=== PATIENT | male | born 1945 | race Hispanic/Latino ===

== ENCOUNTER 2020-06-20 21:35 | Inpatient (IN) | payer MEDICARE ==
[~2020-06-20] VITALS: Ht 167.6 cm; Wt 79.4 kg
[2020-06-20 21:53] LABS: BASOPHILS % (AUTO) 0.7 % (0.0-5.0); EOSINOPHILS % (AUTO) 3.4 % (0.0-8.0); HEMATOCRIT 32.1 % (42-54); LYMPHOCYTES % (AUTO) 30.4 % (21.0-51.0); MEAN CORPUSCULAR HEMOGLOBIN 29.9 pg (27.0-33.0); MEAN CORPUSCULAR HGB CONC 32.4 g/dL (32.0-36.0); MEAN CORPUSCULAR VOLUME 92.2 fL (79-99); MONOCYTES % (AUTO) 7.7 % (3.0-13.0); NEUTROPHILS % (AUTO) 57.3 % (40.0-77.0); PLATELET COUNT (AUTO) 281 K/uL (130-400); RED BLOOD CELL COUNT(AUTO) 3.48 MIL/uL (4.50-6.20); RED CELL DISTRIBUTION WIDTH 12.8 % (11.0-15.5); WHITE BLOOD COUNT (AUTO) 10.3 K/uL (4.8-10.8)
[2020-06-20 22:05] LABS: INR 0.99 (0.85-1.15); PROTHROMBIN TIME 10.8 SEC (9.6-11.6)
[2020-06-20 22:06] LABS: PARTIAL THROMBOPLASTIN TIME 21.9 SEC (26.3-35.5)
[2020-06-20 22:08] LABS: CARBON DIOXIDE 27 mmol/L (21-32); CHLORIDE 108 mmol/L (101-111); CREATININE 1.1 mg/dL (0.5-1.5); GLOMERULAR FILTR. RATE CALC 70 mL/min (>60); GLUCOSE,RANDOM 135 mg/dL (70-105); POTASSIUM 3.6 mmol/L (3.5-5.1); SODIUM SERUM 142 mmol/L (136-145); UREA NITROGEN, BLOOD 41 mg/dL (7-18)
[2020-06-20] MEDS ORDERED: PANTOPRAZOLE 40 MG/VIAL ONE (22:33)
[2020-06-20] MEDS ORDERED: ONDANSETRON 4MG INJ ONE (22:33)
[2020-06-20 22:45] LABS: ALANINE AMINOTRANSFERASE 19 U/L (12-78); ALBUMIN 2.8 g/dL (3.5-5.0); ASPARTATE AMINOTRANSFERASE 16 U/L (10-37); BILIRUBIN,DIRECT < 0.1 mg/dL (0.0-0.3); BILIRUBIN,TOTAL 0.2 mg/dL (0.2-1.0)
[2020-06-20] MEDS ORDERED: LACTATED RINGERS 1000ML 1,000 ML IV ONE (22:57)
[2020-06-20] MEDS ORDERED: LACTULOSE 20 GM/30 ML UDCUP PO PRN (23:30)
[2020-06-20] MEDS ORDERED: NITROGLYCERIN 0.4 MG SL TAB SL PRN (23:30)
[2020-06-20] MEDS ORDERED: DIPHENHYDRAMINE HCL 25 MG CAPSULE PO PRN (23:30)
[2020-06-20] MEDS ORDERED: DiphenhydrAMINE HCL 50 MG/ML VIAL IV PRN (23:30)
[2020-06-20] MEDS ORDERED: ACETAMINOPHEN 325 MG TAB PO PRN (23:30)
[2020-06-20] MEDS ORDERED: MAG/ALUM/SIMETH 30 ML UDCUP PO PRN (23:30)
[2020-06-20] MEDS ORDERED: GUAIFENESIN-DM 200/20 MG 10 ML PO PRN (23:30)
[2020-06-20] MEDS ORDERED: ONDANSETRON 4MG INJ IV PRN (23:30)
[2020-06-21] VITALS (24 sets, daily range): BP systolic 126–180; BP diastolic 70–113
[2020-06-21 00:35] LABS: CREATININE 1.1 mg/dL (0.5-1.5); POTASSIUM 4.2 mmol/L (3.5-5.1)
[2020-06-21 00:39] LABS: ALBUMIN 2.7 g/dL (3.5-5.0); BASOPHILS % (AUTO) 0.4 % (0.0-5.0); BILIRUBIN,TOTAL 0.2 mg/dL (0.2-1.0); EOSINOPHILS % (AUTO) 0.3 % (0.0-8.0); HEMATOCRIT 30.2 % (42-54); LYMPHOCYTES % (AUTO) 10.3 % (21.0-51.0); MEAN CORPUSCULAR HEMOGLOBIN 29.8 pg (27.0-33.0); MEAN CORPUSCULAR HGB CONC 32.1 g/dL (32.0-36.0); MEAN CORPUSCULAR VOLUME 92.9 fL (79-99); MONOCYTES % (AUTO) 5.1 % (3.0-13.0); NEUTROPHILS % (AUTO) 83.4 % (40.0-77.0); PLATELET COUNT (AUTO) 291 K/uL (130-400); RED BLOOD CELL COUNT(AUTO) 3.25 MIL/uL (4.50-6.20); TOTAL PROTEIN, SERUM 5.8 g/dL (6.0-8.3); WHITE BLOOD COUNT (AUTO) 19.5 K/uL (4.8-10.8)
[2020-06-21] MEDS ORDERED: LACTATED RINGERS 1000ML 1,000 ML IV ONE (01:25)
[2020-06-21] MEDS ORDERED: OCTREOTIDE ACETATE 200 MCG/ML 5 ML VIAL ONE (01:42)
[2020-06-21] MEDS ORDERED: OCTREOTIDE ACETATE 100 MCG/ML AMP ONE (01:42)
[2020-06-21] MEDS: LACTATED RINGERS 1000ML 1,000 ML IV SCH ×3 (04:00→23:02)
[2020-06-21] MEDS: OCTREOTIDE ACETATE 1,250 MCG in 0.9% NACL 250ML 250 ML IV SCH ×2 (05:27→23:02)
[2020-06-21 06:14] LABS: HEMATOCRIT 31.2 % (42-54)
[2020-06-21] MEDS: PANTOPRAZOLE 40MG INJ 80 MG in 0.9%NACL 100ML 100 ML IV SCH ×3 (06:29→23:03)
[2020-06-21] MEDS: CEFTRIAXONE 1G VIAL IVP SCH (10:43)
[2020-06-21 12:25] LABS: HEMATOCRIT 30.7 % (42-54)
[2020-06-22] VITALS (23 sets, daily range): BP systolic 108–170; BP diastolic 60–98
[2020-06-22 06:25] LABS: BASOPHILS % (AUTO) 0.7 % (0.0-5.0); HEMATOCRIT 30.3 % (42-54); LYMPHOCYTES % (AUTO) 16.8 % (21.0-51.0); MEAN CORPUSCULAR HEMOGLOBIN 28.9 pg (27.0-33.0); MEAN CORPUSCULAR HGB CONC 32.7 g/dL (32.0-36.0); MEAN CORPUSCULAR VOLUME 88.6 fL (79-99); MONOCYTES % (AUTO) 8.4 % (3.0-13.0); NEUTROPHILS % (AUTO) 70.8 % (40.0-77.0); PLATELET COUNT (AUTO) 233 K/uL (130-400); RED BLOOD CELL COUNT(AUTO) 3.42 MIL/uL (4.50-6.20); RED CELL DISTRIBUTION WIDTH 13.9 % (11.0-15.5); WHITE BLOOD COUNT (AUTO) 7.3 K/uL (4.8-10.8)
[2020-06-22 06:40] LABS: MAGNESIUM 1.9 mg/dL (1.80-2.40)
[2020-06-22] MEDS ORDERED: PROPOFOL 10 MG/ML 20ML VIAL IV ONE (07:30)
[2020-06-22] MEDS: LACTATED RINGERS 1000ML 1,000 ML IV SCH ×3 (09:27→18:47)
[2020-06-22] MEDS: PANTOPRAZOLE 40 MG/VIAL IVP SCH ×2 (09:40→20:04)
[2020-06-22] MEDS: CEFTRIAXONE 1G VIAL IVP SCH (09:40)
[2020-06-23] VITALS (13 sets, daily range): BP systolic 115–169; BP diastolic 56–90
[2020-06-23] MEDS: LACTATED RINGERS 1000ML 1,000 ML IV SCH (02:00)
[2020-06-23 06:21] LABS: BASOPHILS % (AUTO) 0.7 % (0.0-5.0); EOSINOPHILS % (AUTO) 6.3 % (0.0-8.0); HEMATOCRIT 29.8 % (42-54); LYMPHOCYTES % (AUTO) 17.1 % (21.0-51.0); MEAN CORPUSCULAR HEMOGLOBIN 29.9 pg (27.0-33.0); MEAN CORPUSCULAR HGB CONC 33.6 g/dL (32.0-36.0); MONOCYTES % (AUTO) 9.6 % (3.0-13.0); PLATELET COUNT (AUTO) 214 K/uL (130-400); RED BLOOD CELL COUNT(AUTO) 3.35 MIL/uL (4.50-6.20); RED CELL DISTRIBUTION WIDTH 13.5 % (11.0-15.5); WHITE BLOOD COUNT (AUTO) 7.6 K/uL (4.8-10.8)
[2020-06-23 06:30] LABS: POTASSIUM 3.9 mmol/L (3.5-5.1)
[2020-06-23] MEDS: PANTOPRAZOLE 40 MG/VIAL IVP SCH ×2 (08:08→21:00)
[2020-06-23] MEDS: CEFTRIAXONE 1G VIAL IVP SCH (09:44)
[2020-06-23] MEDS ORDERED: LIDOCAINE HCL 400MG/20ML VIAL ONE (14:18)
[2020-06-24] VITALS: BP 131/77
[2020-06-24 03:00] VITALS: BP 125/69
[2020-06-24] MEDS ORDERED: DIATR MEGLU/DIATRIZOATE SODIUM 30 ML BOTTLE ONE (07:22)
[2020-06-24] MEDS: CEFTRIAXONE 1G VIAL IVP SCH (09:47)
[2020-06-24] MEDS: PANTOPRAZOLE 40 MG/VIAL IVP SCH ×2 (09:47→22:43)
[2020-06-24 12:00] VITALS: BP 129/76
[2020-06-24 16:00] VITALS: BP 133/78
[2020-06-24 19:00] VITALS: BP 142/74
[2020-06-25] VITALS: BP 129/70
[2020-06-25 04:00] VITALS: BP 115/68
[2020-06-25 05:18] LABS: BASOPHILS % (AUTO) 0.5 % (0.0-5.0); EOSINOPHILS % (AUTO) 5.4 % (0.0-8.0); HEMATOCRIT 32.8 % (42-54); LYMPHOCYTES % (AUTO) 15.8 % (21.0-51.0); MEAN CORPUSCULAR HEMOGLOBIN 29.2 pg (27.0-33.0); MEAN CORPUSCULAR HGB CONC 32.9 g/dL (32.0-36.0); MEAN CORPUSCULAR VOLUME 88.6 fL (79-99); NEUTROPHILS % (AUTO) 68.9 % (40.0-77.0); PLATELET COUNT (AUTO) 254 K/uL (130-400); RED CELL DISTRIBUTION WIDTH 13.5 % (11.0-15.5); WHITE BLOOD COUNT (AUTO) 9.3 K/uL (4.8-10.8)
[2020-06-25 05:30] LABS: BILIRUBIN,TOTAL 0.5 mg/dL (0.2-1.0); POTASSIUM 3.5 mmol/L (3.5-5.1); TOTAL PROTEIN, SERUM 6.4 g/dL (6.0-8.3)
[2020-06-25 08:34] VITALS: BP 134/74
[2020-06-25] MEDS: CEFTRIAXONE 1G VIAL IVP SCH (09:28)
[2020-06-25] MEDS: PANTOPRAZOLE 40 MG/VIAL IVP SCH ×2 (09:28→20:53)
[2020-06-25 12:00] VITALS: BP 127/70
[2020-06-25 16:00] VITALS: BP 119/68
[2020-06-25 19:00] VITALS: BP 131/81
[2020-06-26] VITALS: BP 134/75
[2020-06-26 04:00] VITALS: BP 124/73
[2020-06-26 05:53] LABS: BASOPHILS % (AUTO) 0.4 % (0.0-5.0); EOSINOPHILS % (AUTO) 3.8 % (0.0-8.0); HEMATOCRIT 31.5 % (42-54); LYMPHOCYTES % (AUTO) 14.1 % (21.0-51.0); MEAN CORPUSCULAR HEMOGLOBIN 29.4 pg (27.0-33.0); MEAN CORPUSCULAR HGB CONC 32.7 g/dL (32.0-36.0); MONOCYTES % (AUTO) 9.9 % (3.0-13.0); NEUTROPHILS % (AUTO) 71.3 % (40.0-77.0); PLATELET COUNT (AUTO) 248 K/uL (130-400); RED CELL DISTRIBUTION WIDTH 13.6 % (11.0-15.5); WHITE BLOOD COUNT (AUTO) 9.6 K/uL (4.8-10.8)
[2020-06-26 06:12] LABS: ALBUMIN 2.7 g/dL (3.5-5.0); BILIRUBIN,TOTAL 0.3 mg/dL (0.2-1.0); CREATININE 1.1 mg/dL (0.5-1.5); POTASSIUM 3.6 mmol/L (3.5-5.1); TOTAL PROTEIN, SERUM 6.1 g/dL (6.0-8.3)
[2020-06-26 08:00] VITALS: BP 128/77
[2020-06-26] MEDS: PANTOPRAZOLE 40 MG/VIAL IVP SCH ×2 (10:05→21:13)
[2020-06-26] MEDS: CEFTRIAXONE 1G VIAL IVP SCH (10:05)
[2020-06-26 13:26] VITALS: BP 144/71
[2020-06-26 16:00] VITALS: BP 137/75
[2020-06-26 19:00] VITALS: BP 135/75
[2020-06-27] VITALS (22 sets, daily range): BP systolic 125–162; BP diastolic 55–88
[2020-06-27] MEDS: CEFTRIAXONE 1G VIAL IVP SCH (09:33)
[2020-06-27] MEDS: PANTOPRAZOLE 40 MG/VIAL IVP SCH ×2 (09:33→22:29)
[2020-06-27] MEDS ORDERED: 0.9%NACL 1000ML 1,000 ML IV ONE (09:44)
[2020-06-27] MEDS ORDERED: ONDANSETRON 4MG INJ ONE ×2 (10:25→12:38)
[2020-06-27] MEDS ORDERED: MIDAZOLAM HCL 1 MG/ML 2ML VIAL ONE (10:25)
[2020-06-27] MEDS ORDERED: FENTANYL CITRATE PF 50 MCG/1 ML 2ML VIAL ONE ×3 (10:25→12:05)
[2020-06-27] MEDS ORDERED: ROCURONIUM 10MG/1ML SYR 10 MG/ML ML ONE (10:25)
[2020-06-27] MEDS ORDERED: LIDOCAINE PF 100MG/5ML (2%) SYRINGE 5ML ONE (10:25)
[2020-06-27] MEDS ORDERED: PROPOFOL 10 MG/ML 20ML VIAL IV ONE (10:25)
[2020-06-27] MEDS ORDERED: GLYCOPYRROLATE 1 MG/5 ML SYRINGE ONE (12:36)
[2020-06-27] MEDS ORDERED: NEOSTIGMINE 5MG/5ML SYR IV ONE (12:36)
[2020-06-27] MEDS ORDERED: BUPIVACAINE/PF 0.25% 30ML VIAL IJ ONE (12:37)
[2020-06-27] MEDS ORDERED: PHENYLEPHRINE HCL 10 MG/ML 1ML VIAL IV ONE (12:40)
[2020-06-27] MEDS ORDERED: KETOROLAC 30MG VIAL (30MG/ML) IM PRN (14:30)
[2020-06-27] MEDS: LACTATED RINGERS 1000ML 1,000 ML IV SCH ×2 (14:47→22:29)
[2020-06-27] MEDS: MORPHINE 4 MG SYG IV PRN ×2 (14:47→22:29)
[2020-06-27] MEDS: KETOROLAC 15MG/ML VIAL (15MG/ML) IM PRN (17:58)
[2020-06-28] VITALS: BP 125/58
[2020-06-28 03:55] LABS: BASOPHILS % (AUTO) 0.1 % (0.0-5.0); EOSINOPHILS % (AUTO) 0.1 % (0.0-8.0); HEMATOCRIT 27.1 % (42-54); LYMPHOCYTES % (AUTO) 6.2 % (21.0-51.0); MEAN CORPUSCULAR HEMOGLOBIN 29.8 pg (27.0-33.0); MEAN CORPUSCULAR HGB CONC 33.2 g/dL (32.0-36.0); MEAN CORPUSCULAR VOLUME 89.7 fL (79-99); MONOCYTES % (AUTO) 8.2 % (3.0-13.0); NEUTROPHILS % (AUTO) 84.9 % (40.0-77.0); PLATELET COUNT (AUTO) 246 K/uL (130-400); RED BLOOD CELL COUNT(AUTO) 3.02 MIL/uL (4.50-6.20); RED CELL DISTRIBUTION WIDTH 13.6 % (11.0-15.5); WHITE BLOOD COUNT (AUTO) 13.8 K/uL (4.8-10.8)
[2020-06-28 04:00] VITALS: BP 130/67
[2020-06-28 04:17] LABS: ALBUMIN 2.3 g/dL (3.5-5.0); BILIRUBIN,TOTAL 0.5 mg/dL (0.2-1.0); POTASSIUM 3.8 mmol/L (3.5-5.1); TOTAL PROTEIN, SERUM 5.6 g/dL (6.0-8.3)
[2020-06-28] MEDS: LACTATED RINGERS 1000ML 1,000 ML IV SCH ×3 (05:56→20:31)
[2020-06-28 07:57] VITALS: BP 127/74
[2020-06-28] MEDS: PANTOPRAZOLE 40 MG/VIAL IVP SCH ×2 (08:34→20:29)
[2020-06-28] MEDS: KETOROLAC 15MG/ML VIAL (15MG/ML) IM PRN (08:34)
[2020-06-28] MEDS: CEFTRIAXONE 1G VIAL IVP SCH (08:34)
[2020-06-28 12:00] VITALS: BP 152/83
[2020-06-28 16:00] VITALS: BP 143/72
[2020-06-28 19:00] VITALS: BP 124/64
[2020-06-28] MEDS: ACETAMINOPHEN 325 MG TAB PO PRN (20:30)
[2020-06-29] VITALS (7 sets, daily range): BP systolic 113–145; BP diastolic 64–90
[2020-06-29] MEDS: ACETAMINOPHEN 325 MG TAB PO PRN (04:37)
[2020-06-29] MEDS: LACTATED RINGERS 1000ML 1,000 ML IV SCH ×2 (06:03→14:15)
[2020-06-29] MEDS: PANTOPRAZOLE 40 MG/VIAL IVP SCH ×2 (08:14→20:41)
[2020-06-29] MEDS: MORPHINE 4 MG SYG IV PRN (08:14)
[2020-06-29] MEDS: CEFTRIAXONE 1G VIAL IVP SCH (08:15)
[2020-06-29 11:28] LABS: HEMATOCRIT 28.6 % (42-54); MEAN CORPUSCULAR HEMOGLOBIN 29.5 pg (27.0-33.0); MEAN CORPUSCULAR HGB CONC 32.9 g/dL (32.0-36.0); MEAN CORPUSCULAR VOLUME 89.7 fL (79-99); RED BLOOD CELL COUNT(AUTO) 3.19 MIL/uL (4.50-6.20); RED CELL DISTRIBUTION WIDTH 13.7 % (11.0-15.5); WHITE BLOOD COUNT (AUTO) 11.7 K/uL (4.8-10.8)
[2020-06-29] MEDS: METOPROLOL TARTRATE 25 MG TAB PO SCH ×2 (18:57→20:42)
[2020-06-30] MEDS: LACTATED RINGERS 1000ML 1,000 ML IV SCH ×3 (02:46→21:42)
[2020-06-30 04:22] VITALS: BP 145/68
[2020-06-30 08:12] VITALS: BP 101/53
[2020-06-30 08:15] VITALS: BP 136/74
[2020-06-30] MEDS: METOPROLOL TARTRATE 25 MG TAB PO SCH ×2 (09:17→21:41)
[2020-06-30] MEDS: CEFTRIAXONE 1G VIAL IVP SCH (09:17)
[2020-06-30] MEDS: PANTOPRAZOLE 40 MG/VIAL IVP SCH (09:17)
[2020-06-30 12:01] VITALS: BP 126/71
[2020-06-30 16:45] VITALS: BP 175/94
[2020-06-30 19:00] VITALS: BP 135/87
[2020-06-30] MEDS: PANTOPRAZOLE 40 MG TAB DR PO SCH (21:41)
[2020-07-01] VITALS: BP 143/79
[2020-07-01 04:00] VITALS: BP 159/78
[2020-07-01 04:50] LABS: HEMATOCRIT 28.4 % (42-54); MEAN CORPUSCULAR HEMOGLOBIN 28.8 pg (27.0-33.0); MEAN CORPUSCULAR HGB CONC 32.7 g/dL (32.0-36.0); MEAN CORPUSCULAR VOLUME 87.9 fL (79-99); NUCLEATED RED BLOOD CELLS 0.1 % (0.0-0.19); RED BLOOD CELL COUNT(AUTO) 3.23 MIL/uL (4.50-6.20); RED CELL DISTRIBUTION WIDTH 14.1 % (11.0-15.5); WHITE BLOOD COUNT (AUTO) 13.4 K/uL (4.8-10.8)
[2020-07-01] MEDS: LACTATED RINGERS 1000ML 1,000 ML IV SCH ×3 (05:42→21:19)
[2020-07-01 08:35] VITALS: BP 130/75
[2020-07-01] MEDS: PANTOPRAZOLE 40 MG TAB DR PO SCH ×2 (09:00→20:11)
[2020-07-01] MEDS: METOPROLOL TARTRATE 25 MG TAB PO SCH ×2 (09:00→20:11)
[2020-07-01] MEDS ORDERED: PANTOPRAZOLE 40 MG/VIAL ONE (09:11)
[2020-07-01] MEDS ORDERED: IOHEXOL-350 75 ML VIAL IV ONE (09:15)
[2020-07-01] MEDS: ZOSYN 3.375GM+NS 50ML 50 ML IV SCH ×3 (09:21→20:02)
[2020-07-01 11:43] VITALS: BP 135/75
[2020-07-01] MEDS ORDERED: HEPARIN 1,000 UNIT VIAL ONE (13:14)
[2020-07-01] MEDS ORDERED: LIDOCAINE HCL 1% MDV 50ML VIAL ONE (13:14)
[2020-07-01] MEDS ORDERED: FENTANYL CITRATE PF 50 MCG/1 ML 2ML VIAL ONE (14:20)
[2020-07-01 16:30] VITALS: BP 136/74
[2020-07-01 19:00] VITALS: BP 138/78
[2020-07-01] MEDS: KETOROLAC 15MG/ML VIAL (15MG/ML) IM PRN (20:09)
[2020-07-02 00:03] VITALS: BP 126/71
[2020-07-02 04:00] VITALS: BP 142/76
[2020-07-02] MEDS: ZOSYN 3.375GM+NS 50ML 50 ML IV SCH ×3 (05:10→21:55)
[2020-07-02] MEDS: LACTATED RINGERS 1000ML 1,000 ML IV SCH ×3 (05:10→22:04)
[2020-07-02 05:19] LABS: HEMATOCRIT 25.8 % (42-54); MEAN CORPUSCULAR HEMOGLOBIN 29.1 pg (27.0-33.0); MEAN CORPUSCULAR HGB CONC 32.9 g/dL (32.0-36.0); MEAN CORPUSCULAR VOLUME 88.4 fL (79-99); PLATELET COUNT (AUTO) 265 K/uL (130-400); RED BLOOD CELL COUNT(AUTO) 2.92 MIL/uL (4.50-6.20); RED CELL DISTRIBUTION WIDTH 14.6 % (11.0-15.5)
[2020-07-02 05:32] LABS: CREATININE 1.2 mg/dL (0.5-1.5); POTASSIUM 3.3 mmol/L (3.5-5.1)
[2020-07-02 05:43] LABS: BAND NEUTROPHILS % (MANUAL) 8 % (0-2); EOSINOPHILS % (MANUAL) 5 % (1-6); LYMPHOCYTES % (MANUAL) 7 % (22-44); MAN.DIFF COMMENT-IMPRESSION MANUAL DIFFERENTIAL; MONOCYTES % (MANUAL) 8 % (2-9); REACTIVE LYMPHOCYTES 2 % (0-0); SEGMENTED NEUTROPHILS % 70 % (40-70)
[2020-07-02 05:44] LABS: PLATELET MORPHOLOGY COMMENT ADEQUATE
[2020-07-02] MEDS ORDERED: POTASSIUM CHLORIDE 20MEQ/100ML 100 ML IV PRN ×2 (07:45)
[2020-07-02] MEDS ORDERED: LIDOCAINE HCL-MPF 1% 2ML VIAL IV PRN ×3 (07:45)
[2020-07-02 08:09] LABS: ALBUMIN 1.6 g/dL (3.5-5.0); BILIRUBIN,TOTAL 1.2 mg/dL (0.2-1.0); TOTAL PROTEIN, SERUM 5.6 g/dL (6.0-8.3)
[2020-07-02] MEDS: PANTOPRAZOLE 40 MG TAB DR PO SCH ×2 (09:41→21:55)
[2020-07-02] MEDS: METOPROLOL TARTRATE 25 MG TAB PO SCH ×2 (09:41→21:55)
[2020-07-02 12:00] VITALS: BP 133/66
[2020-07-02 15:13] LABS: INR 1.03 (0.85-1.15); PROTHROMBIN TIME 11.2 SEC (9.6-11.6)
[2020-07-02 16:10] VITALS: BP 152/70
[2020-07-02] MEDS ORDERED: CLINIMIX-E 5%AA /D15%W 2000ML 2,000 ML IV SCH (18:15)
[2020-07-02] MEDS: POTASSIUM CHLORIDE 20MEQ/100ML 100 ML IV PRN ×2 (18:46→22:45)
[2020-07-02 19:00] VITALS: BP 160/78
[2020-07-03] VITALS: BP 150/82
[2020-07-03 04:00] VITALS: BP 149/86
[2020-07-03 04:27] LABS: BASOPHILS % (AUTO) 0.5 % (0.0-5.0); EOSINOPHILS % (AUTO) 3.6 % (0.0-8.0); LYMPHOCYTES % (AUTO) 7.9 % (21.0-51.0); MEAN CORPUSCULAR HEMOGLOBIN 29.2 pg (27.0-33.0); MEAN CORPUSCULAR HGB CONC 32.9 g/dL (32.0-36.0); MEAN CORPUSCULAR VOLUME 88.6 fL (79-99); MONOCYTES % (AUTO) 11.5 % (3.0-13.0); NEUTROPHILS % (AUTO) 74.5 % (40.0-77.0); NUCLEATED RED BLOOD CELLS 0.4 % (0.0-0.19); PLATELET COUNT (AUTO) 288 K/uL (130-400); RED BLOOD CELL COUNT(AUTO) 2.71 MIL/uL (4.50-6.20); RED CELL DISTRIBUTION WIDTH 14.7 % (11.0-15.5); WHITE BLOOD COUNT (AUTO) 9.5 K/uL (4.8-10.8)
[2020-07-03 04:46] LABS: ALBUMIN 1.5 g/dL (3.5-5.0); BILIRUBIN,TOTAL 0.9 mg/dL (0.2-1.0); CREATININE 0.9 mg/dL (0.5-1.5); POTASSIUM 3.6 mmol/L (3.5-5.1); TOTAL PROTEIN, SERUM 5.1 g/dL (6.0-8.3)
[2020-07-03] MEDS: ZOSYN 3.375GM+NS 50ML 50 ML IV SCH ×3 (06:22→21:03)
[2020-07-03] MEDS: LACTATED RINGERS 1000ML 1,000 ML IV SCH ×3 (06:22→21:03)
[2020-07-03 08:00] VITALS: BP 155/78
[2020-07-03] MEDS: PANTOPRAZOLE 40 MG TAB DR PO SCH ×2 (09:00→21:04)
[2020-07-03] MEDS: METOPROLOL TARTRATE 25 MG TAB PO SCH ×2 (09:00→21:04)
[2020-07-03 12:00] VITALS: BP 127/58
[2020-07-03 16:04] VITALS: BP 146/75
[2020-07-03 19:00] VITALS: BP 150/79
[2020-07-03] MEDS ORDERED: CLINIMIX-E 5%AA /D15%W 2000ML 2,000 ML IV SCH (21:00)
[2020-07-04] VITALS (7 sets, daily range): BP systolic 136–168; BP diastolic 75–93
[2020-07-04 04:11] LABS: BASOPHILS % (AUTO) 0.3 % (0.0-5.0); EOSINOPHILS % (AUTO) 0.3 % (0.0-8.0); LYMPHOCYTES % (AUTO) 7.6 % (21.0-51.0); MEAN CORPUSCULAR HEMOGLOBIN 28.4 pg (27.0-33.0); MEAN CORPUSCULAR HGB CONC 31.5 g/dL (32.0-36.0); MEAN CORPUSCULAR VOLUME 90.3 fL (79-99); MONOCYTES % (AUTO) 1.8 % (3.0-13.0); NEUTROPHILS % (AUTO) 85.8 % (40.0-77.0); NUCLEATED RED BLOOD CELLS 0.4 % (0.0-0.19); PLATELET COUNT (AUTO) 346 K/uL (130-400); RED BLOOD CELL COUNT(AUTO) 2.99 MIL/uL (4.50-6.20); RED CELL DISTRIBUTION WIDTH 14.5 % (11.0-15.5); WHITE BLOOD COUNT (AUTO) 9.8 K/uL (4.8-10.8)
[2020-07-04 04:30] LABS: ALBUMIN 1.6 g/dL (3.5-5.0); BILIRUBIN,TOTAL 0.6 mg/dL (0.2-1.0); CREATININE 0.9 mg/dL (0.5-1.5); POTASSIUM 3.9 mmol/L (3.5-5.1); TOTAL PROTEIN, SERUM 5.8 g/dL (6.0-8.3)
[2020-07-04] MEDS: ZOSYN 3.375GM+NS 50ML 50 ML IV SCH ×2 (05:21→13:16)
[2020-07-04] MEDS: LACTATED RINGERS 1000ML 1,000 ML IV SCH ×3 (05:21→20:27)
[2020-07-04] MEDS ORDERED: MORPHINE 2 MG SYG IVP PRN (08:30)
[2020-07-04] MEDS ORDERED: METOPROLOL TARTRATE 1 MG/ML 5ML VIAL IV PRN (08:30)
[2020-07-04] MEDS: PANTOPRAZOLE 40 MG/VIAL IVP SCH ×2 (09:33→20:27)
[2020-07-04] MEDS: MEROPENEM 1 GM VIAL IVP SCH ×2 (15:58→22:12)
[2020-07-05] VITALS (7 sets, daily range): BP systolic 140–163; BP diastolic 84–92
[2020-07-05 04:55] LABS: BASOPHILS % (AUTO) 0.3 % (0.0-5.0); EOSINOPHILS % (AUTO) 0.2 % (0.0-8.0); HEMATOCRIT 25.6 % (42-54); LYMPHOCYTES % (AUTO) 9.5 % (21.0-51.0); MEAN CORPUSCULAR HEMOGLOBIN 29.1 pg (27.0-33.0); MEAN CORPUSCULAR HGB CONC 32.8 g/dL (32.0-36.0); MEAN CORPUSCULAR VOLUME 88.6 fL (79-99); MONOCYTES % (AUTO) 7.7 % (3.0-13.0); NEUTROPHILS % (AUTO) 78.8 % (40.0-77.0); NUCLEATED RED BLOOD CELLS 0.5 % (0.0-0.19); PLATELET COUNT (AUTO) 392 K/uL (130-400); RED BLOOD CELL COUNT(AUTO) 2.89 MIL/uL (4.50-6.20); RED CELL DISTRIBUTION WIDTH 14.2 % (11.0-15.5); WHITE BLOOD COUNT (AUTO) 10.4 K/uL (4.8-10.8)
[2020-07-05 05:26] LABS: ALBUMIN 1.6 g/dL (3.5-5.0); BILIRUBIN,TOTAL 0.3 mg/dL (0.2-1.0); CREATININE 0.8 mg/dL (0.5-1.5); POTASSIUM 3.5 mmol/L (3.5-5.1); TOTAL PROTEIN, SERUM 5.2 g/dL (6.0-8.3)
[2020-07-05] MEDS: LACTATED RINGERS 1000ML 1,000 ML IV SCH ×3 (06:41→22:15)
[2020-07-05] MEDS: MEROPENEM 1 GM VIAL IVP SCH ×3 (06:47→23:00)
[2020-07-05] MEDS: PANTOPRAZOLE 40 MG/VIAL IVP SCH ×2 (09:02→21:00)
[2020-07-05] MEDS ORDERED: M.V.I. IV [ADULT] 10 ML in CLINIMIX-E4.25%AA/D5+LYT2000ML 2,000 ML IV ONE (12:00)
[2020-07-06 04:00] VITALS: BP 145/84
[2020-07-06 04:17] LABS: BASOPHILS % (AUTO) 0.6 % (0.0-5.0); EOSINOPHILS % (AUTO) 2.3 % (0.0-8.0); HEMATOCRIT 27.8 % (42-54); LYMPHOCYTES % (AUTO) 8.4 % (21.0-51.0); MEAN CORPUSCULAR HEMOGLOBIN 28.9 pg (27.0-33.0); MEAN CORPUSCULAR HGB CONC 32.7 g/dL (32.0-36.0); MEAN CORPUSCULAR VOLUME 88.3 fL (79-99); MONOCYTES % (AUTO) 7.6 % (3.0-13.0); NEUTROPHILS % (AUTO) 74.9 % (40.0-77.0); NUCLEATED RED BLOOD CELLS 1.1 % (0.0-0.19); PLATELET COUNT (AUTO) 433 K/uL (130-400); RED BLOOD CELL COUNT(AUTO) 3.15 MIL/uL (4.50-6.20); RED CELL DISTRIBUTION WIDTH 14.5 % (11.0-15.5); WHITE BLOOD COUNT (AUTO) 12.6 K/uL (4.8-10.8)
[2020-07-06 04:42] LABS: ALBUMIN 1.8 g/dL (3.5-5.0); BILIRUBIN,TOTAL 0.5 mg/dL (0.2-1.0); CREATININE 0.8 mg/dL (0.5-1.5); POTASSIUM 3.8 mmol/L (3.5-5.1); TOTAL PROTEIN, SERUM 5.7 g/dL (6.0-8.3)
[2020-07-06] MEDS: LACTATED RINGERS 1000ML 1,000 ML IV SCH ×3 (06:20→22:44)
[2020-07-06] MEDS: MEROPENEM 1 GM VIAL IVP SCH ×3 (06:20→22:44)
[2020-07-06] MEDS ORDERED: DIATR MEGLU/DIATRIZOATE SODIUM 30 ML BOTTLE ONE (07:32)
[2020-07-06 07:46] VITALS: BP 153/84
[2020-07-06] MEDS: PANTOPRAZOLE 40 MG/VIAL IVP SCH ×2 (09:30→22:44)
[2020-07-06] MEDS ORDERED: FAT EMULSIONS 20% 250ML 250 ML IV SCH (10:00)
[2020-07-06 12:08] VITALS: BP 158/85
[2020-07-06] MEDS ORDERED: IOHEXOL-350 75 ML VIAL IV ONE (13:02)
[2020-07-06] MEDS ORDERED: M.V.I. IV [ADULT] 10 ML in CLINIMIX-E4.25%AA/D5+LYT2000ML 2,000 ML IV ONE (16:00)
[2020-07-06 16:20] VITALS: BP 155/81
[2020-07-06 20:00] VITALS: BP 158/79
[2020-07-07] VITALS: BP 153/83
[2020-07-07 04:00] VITALS: BP 174/82
[2020-07-07 04:24] LABS: BASOPHILS % (AUTO) 0.5 % (0.0-5.0); EOSINOPHILS % (AUTO) 1.5 % (0.0-8.0); HEMATOCRIT 28.8 % (42-54); LYMPHOCYTES % (AUTO) 6.4 % (21.0-51.0); MEAN CORPUSCULAR HEMOGLOBIN 28.4 pg (27.0-33.0); MEAN CORPUSCULAR HGB CONC 32.3 g/dL (32.0-36.0); MEAN CORPUSCULAR VOLUME 87.8 fL (79-99); MONOCYTES % (AUTO) 5.9 % (3.0-13.0); NEUTROPHILS % (AUTO) 81.3 % (40.0-77.0); NUCLEATED RED BLOOD CELLS 0.4 % (0.0-0.19); PLATELET COUNT (AUTO) 406 K/uL (130-400); RED BLOOD CELL COUNT(AUTO) 3.28 MIL/uL (4.50-6.20); RED CELL DISTRIBUTION WIDTH 14.6 % (11.0-15.5); WHITE BLOOD COUNT (AUTO) 14.3 K/uL (4.8-10.8)
[2020-07-07 04:40] LABS: CREATININE 0.7 mg/dL (0.5-1.5); POTASSIUM 4.1 mmol/L (3.5-5.1)
[2020-07-07] MEDS: MEROPENEM 1 GM VIAL IVP SCH (06:44)
[2020-07-07] MEDS: LACTATED RINGERS 1000ML 1,000 ML IV SCH (06:44)
[2020-07-07 07:39] VITALS: BP 162/84
[2020-07-07] MEDS: PANTOPRAZOLE 40 MG/VIAL IVP SCH (09:31)
[2020-07-07 11:29] VITALS: BP 153/90
[2020-08-18] MEDS ORDERED: PANT40TA55 PO (13:52)
== END 2020-07-07 14:58 | DRG 326 ==
LOC: EDH 21:35 → MERGE 23:25 → EDHIP 23:25 → 2DH 06-21 03:24 → 4CH 06-21 11:47 → 2DH 06-21 12:08 → 4AH 06-23 14:00
PROVIDERS: ADMIT Family Medicine; ATTEND Family Medicine
PROC: 02HV33Z Insertion of Infusion Device into Superior Vena Cava, Percutaneous Approach (ICD-10-PCS; principal; 2020-06-21)
PROC: 30233R1 Transfusion of Nonautologous Platelets into Peripheral Vein, Percutaneous Approach (ICD-10-PCS; 2020-06-21)
PROC: 30233N1 Transfusion of Nonautologous Red Blood Cells into Peripheral Vein, Percutaneous Approach (ICD-10-PCS; 2020-06-21)
PROC: 0DB68ZX Excision of Stomach, Via Natural or Artificial Opening Endoscopic, Diagnostic (ICD-10-PCS; 2020-06-22)
PROC: 0D160ZA Bypass Stomach to Jejunum, Open Approach (ICD-10-PCS; 2020-06-27)
DX: C16.9 Malignant neoplasm of stomach, unspecified (principal); K22.6 Gastro-esophageal laceration-hemorrhage syndrome; R57.1 Hypovolemic shock; K25.6 Chronic or unspecified gastric ulcer with both hemorrhage and perforation; K65.1 Peritoneal abscess; K92.1 Melena; K56.7 Ileus, unspecified; Z16.24 Resistance to multiple antibiotics; I10 Essential (primary) hypertension; D50.0 Iron deficiency anemia secondary to blood loss (chronic); B96.20 Unspecified Escherichia coli [E. coli] as the cause of diseases classified elsewhere; Z98.52 Vasectomy status; E66.9 Obesity, unspecified; F10.20 Alcohol dependence, uncomplicated; Z20.822 Contact with and (suspected) exposure to COVID-19
CPT/HCPCS: 10030; 36415; 36569; 43235; 43239; 71045; 71250; 74018; 74150; 74177; 74178; 76705; 76942; 80048; 80053; 80061; 80076; 82948; 83605; 83735; 84145; 84484; 85014; 85018; 85025; 85027; 85610; 85730; 86140; 86850; 86900; 86901; 86922; 86927; 87040; 87071; 87077; 87186; 87205; 87426; 88305; 88309; 88341; 88342; 88374; 93005; 97039; A4606; C1894; C9113; G0378; J0696; J1644; J1885; J2001; J2185; J2250; J2270; J2354; J2370; J2405; J2543; J2704; J2710; J3010; J3480; J3490; J7030; J7050; J7120; P9016; P9017; P9034; Q9963; Q9967; U0003

== ENCOUNTER → 2020-07-15 | Outpatient (CLI) | payer OTHER ==
[~2020-07-15] MED LIST: DIATR MEGLU/DIATRIZOATE SODIUM 30 ML BOTTLE ONE
== END | disposition home or self-care (01) ==
LOC: RAH 12:59
PROVIDERS: ATTEND Internal Medicine Infectious Disease
DX: K94.29 Other complications of gastrostomy (principal)
CPT/HCPCS: 74240; Q9963

== ENCOUNTER 2020-08-19 07:42 | Day surgery (SDC) | payer MEDICARE ==
[2020-08-18 13:02] LABS: BASOPHILS % (AUTO) 0.6 % (0.0-5.0); EOSINOPHILS % (AUTO) 2.8 % (0.0-8.0); HEMATOCRIT 38.3 % (42-54); LYMPHOCYTES % (AUTO) 14.6 % (21.0-51.0); MEAN CORPUSCULAR HEMOGLOBIN 28.3 pg (27.0-33.0); MEAN CORPUSCULAR HGB CONC 30.5 g/dL (32.0-36.0); MEAN CORPUSCULAR VOLUME 92.5 fL (79-99); NEUTROPHILS % (AUTO) 74.5 % (40.0-77.0); PLATELET COUNT (AUTO) 319 K/uL (130-400); RED BLOOD CELL COUNT(AUTO) 4.14 MIL/uL (4.50-6.20); RED CELL DISTRIBUTION WIDTH 15.9 % (11.0-15.5); WHITE BLOOD COUNT (AUTO) 13.2 K/uL (4.8-10.8)
[2020-08-18 13:18] LABS: CREATININE 0.9 mg/dL (0.5-1.5); POTASSIUM 4.4 mmol/L (3.5-5.1)
[2020-08-18 13:54] VITALS: BP 137/70
[~2020-08-19] VITALS: Ht 167.6 cm; Wt 70.8 kg
[~2020-08-19 07:42] MED LIST changes: -DIATR MEGLU/DIATRIZOATE SODIUM 30 ML BOTTLE ONE; +PANT40TA55 PO
[2020-08-19 08:30] VITALS: BP 140/72
[2020-08-19 08:46] LABS: INR 1.04 (0.85-1.15); PROTHROMBIN TIME 11.3 SEC (9.6-11.6)
[2020-08-19 08:48] LABS: PARTIAL THROMBOPLASTIN TIME 29.3 SEC (26.3-35.5)
[2020-08-19] MEDS ORDERED: SODIUM CHLORIDE 0.9% 1000ML 1,000 ML IV ONE (09:00)
[2020-08-19] MEDS ORDERED: LIDOCAINE HCL 1% MDV 50ML VIAL ONE (09:44)
[2020-08-19] MEDS ORDERED: IODIXANOL 320 MG/ML 100 ML VIAL ONE (09:44)
[2020-08-19 11:00] VITALS: BP 156/78
== END 2020-08-19 11:20 | disposition home or self-care (01) ==
LOC: DAH 07:42
PROVIDERS: ATTEND Surgery
DX: K25.9 Gastric ulcer, unspecified as acute or chronic, without hemorrhage or perforation (principal); Z79.01 Long term (current) use of anticoagulants; Z82.49 Family history of ischemic heart disease and other diseases of the circulatory system; Z90.3 Acquired absence of stomach [part of]
CPT/HCPCS: 36415 ×2; 49424; 76080; 80048; 85025; 85610; 85730; A4215; A4216; A4221; A4222; A4223 ×3; A4606; A4663; J7030; Q9967; J3490